=== PATIENT | female | born 1990 | race African-American/Black ===

== ENCOUNTER 2017-03-02 09:05 | Inpatient (IN) ==
[2017-03-02] MEDS ORDERED: PENICILLIN G BENZATHINE 2,400,000 UNIT/4 ML SYRINGE IM ONE (09:30)
--- NOTE | 2017-03-02 11:13 | OB/GYN Progress Note ---
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 Records are available and reviewed. She is here for a repeat PCN G shot secondary to positive VDRL for syphillis. She has already had 2 doses. She complains of irregular contractions and vaginal bleeding today. She denies any other problems presently. States she notices good movement, denies any SROM. ROS: GI negative, CV negative, Neuro negative, Cardiac negative O: AAO x 3 Lungs: CTA carlene Hrt: NSR Abdomen: soft, nontender Uterus: Gravid, soft between contractions FHTs @ 120s with spontaneous variability UCs irregular/ 40-60 sec/ mild SVE 3-4 cm/ 50% effaced/ -2 station GBS negative A: IUP @ 38.3 wks, H/O Syphillis, GBS negative, Early Labor, Category I FHR tracing P: Continue to monitor for maternal and status, reposition for comfort. Dr. Allen aware of patient and plan of care and agrees to monitor for labor. Questions answered to desired level of satisfaction. Ice chips only. 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
[2017-03-02] MEDS ORDERED: BUTORPHANOL 2 MG/ML VIAL IV PRN (15:23)
[2017-03-02] MEDS ORDERED: ONDANSETRON 4 MG/2 ML VIAL IV PRN (15:23)
[2017-03-02] MEDS ORDERED: MEPERIDINE 50 MG/1 ML VIAL IV PRN (15:23)
[2017-03-02] MEDS ORDERED: OXYTOCIN/LR 20 UNIT/1,000 ML BAG IV SCH (15:30)
[2017-03-02] MEDS: LACTATED RINGERS 1,000 ML IV SCH (15:45)
[2017-03-02 17:04] LABS: Basophils % 0.3 % (0.0-0.8); Eosinophils # 0.1 10*3/uL (0.0-0.87); Eosinophils % 1.3 % (0.00-10.9); Hematocrit 30.7 VOL% (35.7-47.0); Hemoglobin 9.3 GM/DL (12.0-16.0); Immature Granulocytes % 0.4 %; Immature Granulocytes Absolute 0.04 #; Lymphocytes # 2.2 10*3/uL (1.4-4.0); Lymphocytes % 22.6 % (21.3-54.2); Mean Corpuscular HGB Conc 30.3 GM/DL (32-36); Mean Corpuscular Hemoglobin 22 PG (27-34); Mean Corpuscular Volume 72.9 FL (87-102); Mean Platelet Volume 10.9 FL (9.6-12.0); Monocytes # 0.6 10*3/uL (0.11-0.8); Monocytes % 5.7 % (1.7-12.7); Neutrophils # 6.8 10*3/uL (1.4-7.4); Neutrophils % 69.7 % (38.7-73.9); Platelet Count 332 T/CUMM (130-400); Red Blood Count 4.21 MC/CUMM (3.8-5.5); Red Cell Distribution Width 16.3 % (9.3-17.3); White Blood Count 9.7 T/CUMM (4-12)
[2017-03-02 17:30] LABS: Alanine Aminotransferase 9 U/L (13-56); Albumin 2.3 G/DL (3.4-5.0); Alkaline Phosphatase 118 U/L (45-117); Aspartate Amino Transferase 15 U/L (0-37); Bilirubin,Total < 0.39 MG/DL (0.2-1.0); Blood Urea Nitrogen 5 MG/DL (7-18); Calcium 8.4 MG/DL (8.5-10.1); Glucose 76 MG/DL (74-106); Osmolality,Calculated 274.4 MOS/KG (273-304); Potassium 3.3 MMOL/L (3.5-5.1); Sodium 140 MMOL/L (136-145)
[2017-03-02] MEDS ORDERED: CITRIC ACID/SODIUM CITRATE 30 ML UDCUP PO ONE (19:59)
[2017-03-02] MEDS ORDERED: fentaNYL 2 MCG/ROPIV 0.2% EPID 150 ML EPIDURAL SCH (19:59)
[2017-03-02] MEDS ORDERED: hydrOXYzine HCL 25 MG/1 ML VIAL IM PRN (19:59)
[2017-03-02] MEDS ORDERED: PROMETHAZINE 25 MG/1 ML VIAL IM ONE (19:59)
[2017-03-02] MEDS ORDERED: ONDANSETRON 4 MG/2 ML VIAL IV ONE (19:59)
[2017-03-02] MEDS ORDERED: ePHEDrine 50 MG/ML AMP IV PRN (19:59)
[2017-03-02] MEDS ORDERED: diphenhydrAMINE 50 MG/1 ML VIAL IV PRN ×2 (19:59)
[2017-03-02] MEDS ORDERED: FAMOTIDINE 20 MG/2 ML VIAL IV ONE (19:59)
[2017-03-03] MEDS ORDERED: CITRIC ACID/SODIUM CITRATE 30 ML UDCUP PO ONE (04:59)
[2017-03-03] MEDS ORDERED: FAMOTIDINE 20 MG/2 ML VIAL IV ONE (04:59)
[2017-03-03] MEDS: LACTATED RINGERS 1,000 ML IV SCH ×2 (05:14→05:58)
--- NOTE | 2017-03-03 05:14 | OB/GYN History & Physical ---
History of Present Illness Chief complaint: Admitted for labor. C/O contractions. History of present illness: Ms. Castro is a 26 year old female Patient is a 26-year-old 5 para 2021 that presented complaining of contractions and to receive her third shot for syphilis. She has an EDC of based on a 34.6 week ultrasound. She is 38.3 weeks gestation on admission. She receives care at [facility] with Geni Ambrosio and myself. She had a total of 3 visits and 1 ultrasounds. Her records are current, available, and up-to-date. During the course of her , she was noted with chlamydia, herpes, and syphilis. She did receive syphilis 3 injections [facility]. She did receive azithromycin for her treatment of chlamydia. She is placed on Valtrex 1 g daily starting on 02/12/2017. 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 Labs: Blood type and RH a positive, antibody screen negative, Rubella immune, HIV negative, HBsAG negative, GC negative, Chlamydia positive on 02/12/2017 and treated with 8 azithromycin, Diabetic Screen unavailable, GBS negative, her RPR was 1: 32 reactive in which she did receive penicillin G 2.4 million units 3 doses IM with her last dose being given on 03-17 Home Medications Medication Instructions Recorded Confirmed Type Vit No.124/Iron/Folic 1 each PO DAILY MDD one tab 01/28/17 03/02/17 History [ Vitamin Tablet] Ferrous Sulfate [Iron] 1 tablet PO BID 03/02/17 03/02/17 History valACYclovir [Valtrex] 500 mg PO DAILY 03/02/17 03/02/17 History Allergies Allergy/AdvReac Type Severity Reaction Status Date / Time No Known Allergies Allergy Verified 03/02/17 09:27 12 point system: reviewed and no additional remarkable complaints except as stated Medical,Surgical,& Family Hx - Medical History Reproductive: History of: Sexually Transmitted Disorders (syphillis tx with pcn , HSV, Chlamydia) No history of: Ectopic , Complication - Surgical History Surgical History: noncontributory Reproductive Surgeries: Patient denies;: Section - Family History Family History: Reports;: Family Diabetes (pgm) Denies;: Family Anesthesia Reaction - Social History Smoking Status: Never smoker Frequency of Alcohol Use: None Type of Drug Use: None Marital Status: Single Lives With:: Children Functional capacity: independent ambulation 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 - Constitutional Vitals: Vital Signs Temp Pulse Resp BP Pulse Ox 03/03/17 00:00 98.1 F 03/02/17 20:00 98.2 F 86 18 111/66 03/02/17 16:00 97.7 F 89 20 134/51 03/02/17 12:00 97.4 F L 79 18 111/71 03/02/17 09:13 98.6 F 90 20 121/65 98 General appearance: no acute distress - Antepartum / Post Antepartum Exam Cervix - Dilatation: 5 Effacement: 50 Station: -2 Rupture: Intact Presentation: Vertex Heart Rate: 120 [place]: Irregular Breast: bilateral: normal Abdomen obstetrics: Present: bowel sounds normal Vulva: bilateral: normal Vagina: Present: normal moisture Cervix: Present: normal Uterus exam: Present: enlarged (Gravid, soft, nontender to touch) Adnexa: bilateral: normal Anus/Rectum: Present: normal perianal skin - Head Head exam: Present: normal inspection - Eye Eye exam: Present: EOMI Pupils: Present: normal accommodation - ENT ENT exam: Present: normal exam - Neck Neck exam: Present: normal inspection - Respiratory Respiratory exam: Present: clear to auscultation bilaterally - Cardiovascular Cardiovascular exam: Present: regular rate and rhythm - Extremities Exam Extremities exam: Present: normal inspection, normal capillary refill, full ROM - Back Exam Back exam: Present: normal inspection - Neurological Exam Neurological exam: Present: alert, oriented X3, normal gait - Psychiatric Psychiatric exam: Present: normal affect, normal mood - Skin Skin exam: Present: normal color, warm Assessment and Plan (1) History of syphilis Status: Acute Current Visit: Yes (2) Spontaneous onset of labor Status: Acute Current Visit: Yes (3) Anemia Status: Acute Current Visit: Yes Results - Labs CBC & BMP: 03/02/17 16:55 03/02/17 16:55 Labs: Laboratory Tests 03/02/17 03/02/17 03/02/17 16:55 16:55 16:55 WBC 9.7 RBC 4.21 Hgb 9.3 L Hct 30.7 L MCV 72.9 L MCH 22 L MCHC 30.3 L RDW 16.3 Plt Count 332 MPV 10.9 Neut % (Auto) 69.7 Lymph % (Auto) 22.6 [place] % (Auto) 5.7 Eos % (Auto) 1.3 Baso % (Auto) 0.3 Neut # (Auto) 6.8 Lymph # (Auto) 2.2 [place] # (Auto) 0.6 Eos # (Auto) 0.1 Baso # (Auto) 0.0 Immature Gran % 0.4 Nucleated RBC % 0.0 Immature Gran # 0.04 Nucleated RBCs # 0.00 Immature Plt Fraction 0.0 Sodium 140 Potassium 3.3 L Chloride 108 H Carbon Dioxide 25 Anion Gap 10.3 BUN 5 L Creatinine 0.40 L GFR Calculation 183 BUN/Creatinine Ratio 12.00 Glucose 76 Calculated Osmolality 274.4 Calcium 8.4 L Total Bilirubin < 0.39 AST 15 ALT 9 L Alkaline Phosphatase 118 H Total Protein 7.0 Albumin 2.3 L Globulin 4.7 H Albumin/Globulin Ratio 0.4 L Blood Type A POSITIVE Antibody Screen Negative
--- NOTE | 2017-03-03 05:23 | OB/GYN Progress Note ---
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 Denies SROM or vaginal bleeding O: heart tones at 115-120s with spontaneous accelerations, no decelerations noted, good variability present, category 1 heart rate tracing Irregular contractions noted 4/30-50 seconds/mild Vaginal exam 6 cm/80% effaced/-1 station. Artificial rupture of membranes with an amniotic with clear fluid noted A: IUP @ 38.4, Category I FHR tracing, H/O Syphilis, Spontaneous labor, Prodromal labor, AROM- clear fluid P: Start Pitocin secondary prodromal labor. May have epidural if desired. Reposition for comfort. Questions answered to desired level of satisfaction. 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
[2017-03-03 05:51] LABS: Rapid Plasma Reagin Confirm REACTIVE (Nonreactive)
[2017-03-03] MEDS ORDERED: miSOPROStol 200 MCG TABLET ONE (08:50)
--- NOTE | 2017-03-03 09:22 | Operative Note ---
Date of procedure: 03/03/17 Pre-op diagnosis: IUP @ 37.3 wks, Labor, H/O Syphilis Post-op diagnosis: other () Procedure: Patient received dorsolithotomy position, at 0840 patient was complete and +1 station. Patient was draped and prepped. At 0856, head delivered in direct OP position without a nuchal cord noted. Anterior then posterior shoulders were delivered easily without difficulty. delivered in usual fashion and secured. Mouth and nose bulb suctioned. After approximately 2 minutes post delivery and cord stopped pulsating, cord doubly clamped and cut. placed on mother's abdomen and attended per nursery RN. At 0901, spontaneous delivery of placenta via Shilts position, with 3 vessel cord noted, normal cord insertion, with minimal calcifications. Hemostasis maintained with fundal massage and Pitocin 20 units in 1000 cc of lactated Ringer's. Perineum inspected with perineal abrasions noted, stable, no repair needed. Female with Apgars 9 and 9 with weight pending. Mother and baby stable and baby is presently on mother's chest. Mother desires to breast and bottle feed. Anesthesia: epidural Surgeon / Physician: Yohana Siddiqui Estimated blood loss: minimal (150 cc) Urine output: 100 Condition: stable Disposition: floor Results - Labs CBC & BMP: 03/02/17 16:55 03/02/17 16:55 Discharge Plan - Discharge Medications No Action Vit No.124/Iron/Folic [ Vitamin Tablet] 1 each PO DAILY MDD one tab valACYclovir [Valtrex] 500 mg PO DAILY Ferrous Sulfate [Iron] 1 tablet PO BID - Follow Up or Referral - Forms/Instructions
[2017-03-03] MEDS ORDERED: oxyCODONE/ACETAMINOPHEN 5-325 MG TABLET PO PRN ×2 (09:24)
[2017-03-03] MEDS ORDERED: RHO(D) IMMUNE GLOBULIN 300 MCG SYRINGE IM ONE (09:24)
[2017-03-03] MEDS ORDERED: DIPH/TET/ACEL PERT BOOSTER VACCINE 0.5 ML VIAL IM ONE (09:24)
[2017-03-03] MEDS ORDERED: BENZOCAINE 20%/MENTHOL 0.5% SPRAY 56 GM CAN TOP PRN (09:24)
[2017-03-03] MEDS ORDERED: WITCH HAZEL PADS 100/JAR TOP PRN (09:24)
[2017-03-03] MEDS ORDERED: IBUPROFEN 800 MG TABLET PO PRN (09:24)
[2017-03-03] MEDS ORDERED: OXYTOCIN/LR 20 UNIT/1,000 ML BAG IV ONE (09:24)
[2017-03-03] MEDS ORDERED: MEASLES/MUMPS/RUBELLA VACCINE 0.5 ML VIAL SUBCUT ONE (09:24)
[2017-03-03] MEDS ORDERED: ACETAMINOPHEN 325 MG TABLET PO PRN (09:24)
[2017-03-03] MEDS ORDERED: BISACODYL 10 MG SUPP RECTAL PRN (09:24)
[2017-03-03] MEDS ORDERED: HYDROCORTISONE 2.5% RECTAL CREAM 30 GM TUBE TOP PRN (09:24)
[2017-03-03] MEDS ORDERED: LANOLIN 50% CREAM 0.3 OZ TUBE TOP PRN (09:24)
[2017-03-03] MEDS: FERROUS SULFATE 325 MG TABLET PO SCH ×2 (15:34→21:21)
[2017-03-03] MEDS: DOCUSATE SODIUM 100 MG CAPSULE PO SCH (21:12)
[2017-03-03] MEDS: valACYclovir 500 MG TABLET PO SCH (21:21)
[2017-03-04 06:42] LABS: Basophils % 0.2 % (0.0-0.8); Eosinophils # 0.2 10*3/uL (0.0-0.87); Eosinophils % 1.6 % (0.00-10.9); Hematocrit 25.8 VOL% (35.7-47.0); Hemoglobin 8.1 GM/DL (12.0-16.0); Immature Granulocytes % 0.5 %; Immature Granulocytes Absolute 0.06 #; Lymphocytes # 3.2 10*3/uL (1.4-4.0); Mean Corpuscular HGB Conc 31.4 GM/DL (32-36); Mean Corpuscular Hemoglobin 23 PG (27-34); Mean Corpuscular Volume 72.1 FL (87-102); Mean Platelet Volume 10.3 FL (9.6-12.0); Monocytes # 0.6 10*3/uL (0.11-0.8); Neutrophils # 7.3 10*3/uL (1.4-7.4); Neutrophils % 64.7 % (38.7-73.9); Platelet Count 235 T/CUMM (130-400); Red Blood Count 3.58 MC/CUMM (3.8-5.5); White Blood Count 11.3 T/CUMM (4-12)
--- NOTE | 2017-03-04 07:12 | Anesthesia Post-Op ---
Anesthesia Post OP - Post Ansesthetic Evaluation Patient seen in post op: Yes Resp: within normal limits CV: within normal limits Mental: within normal limits Temp: within normal limits [id number]-[id number]: within normal limits Nausea and Vomiting: within normal limits Pain: within normal limits
[2017-03-04] MEDS: valACYclovir 500 MG TABLET PO SCH (08:49)
[2017-03-04] MEDS: DOCUSATE SODIUM 100 MG CAPSULE PO SCH ×2 (08:49→22:03)
[2017-03-04] MEDS: FERROUS SULFATE 325 MG TABLET PO SCH ×2 (08:50→22:02)
--- NOTE | 2017-03-04 09:26 | OB/GYN Progress Note ---
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 Denies any problems. Requests a tubal ligation for control. Exam RANCH HELPER - Constitutional Vitals: Vital Signs Temp Pulse Resp BP Pulse Ox 03/04/17 07:35 97.6 F 77 18 108/71 97 03/04/17 06:26 18 03/04/17 06:00 18 03/04/17 05:00 18 03/04/17 04:00 97.6 F 71 20 109/60 99 03/04/17 03:00 18 03/04/17 02:00 18 03/04/17 01:00 18 03/04/17 00:00 98.5 F 86 18 122/70 99 03/03/17 20:00 98.9 F 85 18 115/67 99 03/03/17 18:46 20 03/03/17 17:54 20 03/03/17 17:00 20 03/03/17 15:53 97.8 F 76 18 115/74 99 03/03/17 13:30 98.4 F 82 18 122/70 97 03/03/17 13:00 98.3 F 74 18 117/76 99 03/03/17 12:30 98.3 F 76 18 116/80 99 03/03/17 12:00 98.8 F 95 H 20 111/56 100 General appearance: no acute distress - Antepartum / Post Post Exam Breast: bilateral: normal Abdomen obstetrics: Present: bowel sounds normal Vagina: Present: normal moisture (scant rubra noted on perineal pad) Cervix: Present: normal Uterus exam: Present: enlarged (firm, midline, 2 FB below umbilicus) Anus/Rectum: Present: normal perianal skin - Head Head exam: Present: normal inspection - Eye Eye exam: Present: EOMI Pupils: Present: normal accommodation - ENT ENT exam: Present: normal exam - Neck Neck exam: Present: normal inspection - Respiratory Respiratory exam: Present: clear to auscultation bilaterally - Cardiovascular Cardiovascular exam: Present: regular rate and rhythm - Extremities Exam Extremities exam: Present: normal inspection, normal capillary refill - Back Exam Back exam: Present: normal inspection - Neurological Exam Neurological exam: Present: alert - Psychiatric Psychiatric exam: Present: normal affect, normal mood - Skin Skin exam: Present: normal color, warm, dry Results - Labs CBC & BMP: 03/04/17 06:04 03/02/17 16:55 Labs: Laboratory Tests 03/02/17 03/02/17 03/02/17 16:55 16:55 16:55 WBC 9.7 RBC 4.21 Hgb 9.3 L Hct 30.7 L MCV 72.9 L MCH 22 L MCHC 30.3 L RDW 16.3 Plt Count 332 MPV 10.9 Neut % (Auto) 69.7 Lymph % (Auto) 22.6 [place] % (Auto) 5.7 Eos % (Auto) 1.3 Baso % (Auto) 0.3 Neut # (Auto) 6.8 Lymph # (Auto) 2.2 [place] # (Auto) 0.6 Eos # (Auto) 0.1 Baso # (Auto) 0.0 Immature Gran % 0.4 Nucleated RBC % 0.0 Immature Gran # 0.04 Nucleated RBCs # 0.00 Immature Plt Fraction 0.0 Sodium 140 Potassium 3.3 L Chloride 108 H Carbon Dioxide 25 Anion Gap 10.3 BUN 5 L Creatinine 0.40 L GFR Calculation 183 BUN/Creatinine Ratio 12.00 Glucose 76 Calculated Osmolality 274.4 Calcium 8.4 L Total Bilirubin < 0.39 AST 15 ALT 9 L Alkaline Phosphatase 118 H Total Protein 7.0 Albumin 2.3 L Globulin 4.7 H Albumin/Globulin Ratio 0.4 L RPR Titer RPR Confirmation Blood Type A POSITIVE Antibody Screen Negative 03/02/17 03/04/17 16:55 06:04 WBC 11.3 RBC 3.58 L Hgb 8.1 L Hct 25.8 L MCV 72.1 L MCH 23 L MCHC 31.4 L RDW 16.0 Plt Count 235 D MPV 10.3 Neut % (Auto) 64.7 Lymph % (Auto) 28.0 [place] % (Auto) 5.0 Eos % (Auto) 1.6 Baso % (Auto) 0.2 Neut # (Auto) 7.3 Lymph # (Auto) 3.2 [place] # (Auto) 0.6 Eos # (Auto) 0.2 Baso # (Auto) 0.0 Immature Gran % 0.5 Nucleated RBC % 0.0 Immature Gran # 0.06 Nucleated RBCs # 0.00 Immature Plt Fraction 0.0 Sodium Potassium Chloride Carbon Dioxide Anion Gap BUN Creatinine GFR Calculation BUN/Creatinine Ratio Glucose Calculated Osmolality Calcium Total Bilirubin AST ALT Alkaline Phosphatase Total Protein Albumin Globulin Albumin/Globulin Ratio RPR Titer 1:64 RPR Confirmation Reactive Blood Type Antibody Screen
[2017-03-04] MEDS ORDERED: INFLUENZA VIRUS VACCINE 0.5 ML SYRINGE IM ONE (16:16)
[2017-03-05] MEDS: DOCUSATE SODIUM 100 MG CAPSULE PO SCH (10:15)
[2017-03-05] MEDS: FERROUS SULFATE 325 MG TABLET PO SCH ×2 (10:15→16:05)
[2017-03-05] MEDS: valACYclovir 500 MG TABLET PO SCH (10:16)
[2017-03-05 11:37] VITALS: BP 128/76
--- NOTE | 2017-03-05 12:17 | Pathology Report from [facility] ---
[place] ACCESSION # : [id number] PATIENT NAME : Pilar Proctor ORDERING DR : VENKAT DESAI DO CLINICAL HX: Late care, syphilis in POST-OP DX: Same SPECIMEN INFO: Placenta GROSS DESCRIPTION: Received fresh labeled PILAR PROCTOR & PLACENTA is a 449 gm placenta measuring 23.5 x 21.2 x 1.5 cm. The membranes are rene and translucent. The umbilical cord is centrally inserted, contains three vessels and is 25.1 cm. The surface is dark blue [place] with scattered areas of light rene subchorionic fibrinous areas. The maternal surface is beefy red with mildly disrupted cotyledons. Areas of scattered adherent clotted blood are noted. A few scattered calcifications are note. Sectioning shows no gross abnormalities. Sections submitted A- membranes and cord, B- and maternal surface. DIAGNOSIS FOR PILAR PROCTOR: PLACENTA, MEMBRANES, UMBILICAL CORD: Focal placental infarction, mild intervillous blood, dystrophic calcification. Tri- vessel umbilical cord. Membranes with focal chronic inflammation and attached blood. COLLECTED DATE: 03/03/2017 [facility] REPORT DATE: 03/05/2017 ELECTRONICALLY SIGNED BY: Murali Garcia M.D. 03/05/2017 - 9:06:04 KRISTEL
--- NOTE | 2017-03-05 13:15 | Discharge Summary ---
Hospital Course - Hospital Course Hospital Course: Patient is a G5 now 3023 that presented with early labor @ 37.3 wks. Labor progressed under an epidural anesthetic for patient to delivery a female with Agpars 9 and 9 over an intact perineum. Ms. Castro is . She was treated for syphilis with PCN G 2.4 million units and baby tested positive for syphilis. Ms. Castro will be discharged home today and she will f/u with me in 2 weeks. She has been stable. Diagnosis - Discharge Diagnosis (1) History of syphilis Status: Acute (2) Spontaneous onset of labor Status: Resolved (3) Anemia Status: Acute (4) (normal spontaneous vaginal delivery) Status: Resolved Specialty Discharge - Follow Up or Referrals Follow up with: Yohana Siddiqui CFNP [Primary Care Provider] - Discharge Plan - Discharge Data Disposition: Disch To Home/Self Care Condition at Discharge: Stable Discharge Diet: advance to your usual diet Activity: resume usual activities as tolerated Hygiene: may shower Weight Bearing at Discharge: full weight bearing Driving: not for (2 weeks) Contact your physician if you experience:: fever over 101, Difficulty voiding, Redness or swelling, Nausea/Vomiting, Shortness of breath, Bleeding, pain uncontrolled by pain medications - Discharge Medications New Ibuprofen Tab [Motrin Tab] 800 mg PO Q8H PRN #90 tablet PRN Reason: Pain Moderate (4-7) Ferrous Sulfate Tab [Feosol Original Tab] 325 mg PO TID #90 tablet No Action Vit No.124/Iron/Folic [ Vitamin Tablet] 1 each PO DAILY MDD one tab valACYclovir [Valtrex] 500 mg PO DAILY Ferrous Sulfate [Iron] 1 tablet PO BID - Follow Up or Referral Follow Up: Yohana Siddiqui CFNP [Primary Care Provider] - 2 Weeks - Forms/Instructions Instructions: Depression (GEN), Perineal Care (DC), Vaginal Delivery (DC), Bleeding (DC) Exam - Constitutional Vitals: Period Temp Pulse Resp BP Sys/Valderrama Pulse Ox Last 24 Hr 97.8 F-99.3 F 73-85 18-20 109-137/58-79 98-99 General appearance: no acute distress - Head Head exam: Present: normal inspection - Eye Eye exam: Present: EOMI Pupils: Present: normal accommodation - ENT ENT exam: Present: normal exam, normal external ear exam - Neck Neck exam: Present: normal inspection - Respiratory Respiratory exam: Present: clear to auscultation bilaterally - Cardiovascular Cardiovascular exam: Present: regular rate and rhythm - GI/Abdominal GI/Abdominal exam: Present: normal bowel sounds, other (uterus firm, midline, 3 FB below umbilicus. Scant rubra noted on perineal pad. No edema noted to perineal area, intact, healing well) - Extremities Exam Extremities exam: Present: normal inspection, normal capillary refill, full ROM - Back Exam Back exam: Present: normal inspection - Neurological Exam Neurological exam: Present: alert, oriented X3, normal gait - Psychiatric Psychiatric exam: Present: normal affect, normal mood - Skin Skin exam: Present: normal color, warm, dry Discharge Results Procedures and tests throughout hospitalization: Pending Orders 03/03/17 06:25 UA [Urinalysis] Stat Laboratory Tests 03/02/17 03/02/17 03/02/17 16:55 16:55 16:55 WBC 9.7 RBC 4.21 Hgb 9.3 L Hct 30.7 L MCV 72.9 L MCH 22 L MCHC 30.3 L RDW 16.3 Plt Count 332 MPV 10.9 Neut % (Auto) 69.7 Lymph % (Auto) 22.6 [place] % (Auto) 5.7 Eos % (Auto) 1.3 Baso % (Auto) 0.3 Neut # (Auto) 6.8 Lymph # (Auto) 2.2 [place] # (Auto) 0.6 Eos # (Auto) 0.1 Baso # (Auto) 0.0 Immature Gran % 0.4 Nucleated RBC % 0.0 Immature Gran # 0.04 Nucleated RBCs # 0.00 Immature Plt Fraction 0.0 Sodium 140 Potassium 3.3 L Chloride 108 H Carbon Dioxide 25 Anion Gap 10.3 BUN 5 L Creatinine 0.40 L GFR Calculation 183 BUN/Creatinine Ratio 12.00 Glucose 76 Calculated Osmolality 274.4 Calcium 8.4 L Total Bilirubin < 0.39 AST 15 ALT 9 L Alkaline Phosphatase 118 H Total Protein 7.0 Albumin 2.3 L Globulin 4.7 H Albumin/Globulin Ratio 0.4 L RPR Titer RPR Confirmation Blood Type A POSITIVE Antibody Screen Negative 03/02/17 03/04/17 16:55 06:04 WBC 11.3 RBC 3.58 L Hgb 8.1 L Hct 25.8 L MCV 72.1 L MCH 23 L MCHC 31.4 L RDW 16.0 Plt Count 235 D MPV 10.3 Neut % (Auto) 64.7 Lymph % (Auto) 28.0 [place] % (Auto) 5.0 Eos % (Auto) 1.6 Baso % (Auto) 0.2 Neut # (Auto) 7.3 Lymph # (Auto) 3.2 [place] # (Auto) 0.6 Eos # (Auto) 0.2 Baso # (Auto) 0.0 Immature Gran % 0.5 Nucleated RBC % 0.0 Immature Gran # 0.06 Nucleated RBCs # 0.00 Immature Plt Fraction 0.0 Sodium Potassium Chloride Carbon Dioxide Anion Gap BUN Creatinine GFR Calculation BUN/Creatinine Ratio Glucose Calculated Osmolality Calcium Total Bilirubin AST ALT Alkaline Phosphatase Total Protein Albumin Globulin Albumin/Globulin Ratio RPR Titer 1:64 RPR Confirmation Reactive Blood Type Antibody Screen DS: Provider Date of admission: 03/02/17 15:23 Primary care physician: LIZA Lauren Attending physician on admission: Davion Allen DO Consults: 03/02/17 15:23 Consult to Anesthesiology [CONS] Routine Consulting Provider: Reason for Anesthesiology: Epidural Consult Comment: Epidural for pain managment 03/03/17 09:24 Consult to Under Water Assistant [CONS] Routine Consult Under Water Assistant: Breast Feeding Discharging clinician: LIZA Lauren
== END 2017-03-05 16:30 | disposition home or self-care (01) | DRG 560 ==
LOC: N.LDOUT 09:05 → N.LD 09:06 → N.OB 03-03 12:15
PROVIDERS: ADMIT Obstetrics & Gynecology; ATTEND Obstetrics & Gynecology

== ENCOUNTER 2019-08-02 09:41 | Inpatient (IN) ==
[2019-08-02] MEDS ORDERED: ONDANSETRON 4 MG/2 ML VIAL IV PRN (10:05)
[2019-08-02] MEDS ORDERED: MEPERIDINE 50 MG/1 ML VIAL IV PRN (10:05)
[2019-08-02] MEDS ORDERED: AMPICILLIN INJ 2,000 MG in SODIUM CHLORIDE 0.9% 100 ML IV ONE (10:10)
[2019-08-02] MEDS ORDERED: FAMOTIDINE 20 MG/2 ML VIAL IV ONE (10:23)
[2019-08-02] MEDS ORDERED: CITRIC ACID/SODIUM CITRATE 30 ML UDCUP PO ONE (10:23)
[2019-08-02] MEDS ORDERED: LACTATED RINGERS 1,000 ML IV ONE (10:23)
[2019-08-02] MEDS ORDERED: hydrOXYzine HCL 25 MG/1 ML VIAL IM PRN (10:24)
[2019-08-02] MEDS ORDERED: PROMETHAZINE 25 MG/1 ML VIAL IM ONE (10:24)
[2019-08-02] MEDS ORDERED: NALOXONE 0.4 MG/ML VIAL IV PRN (10:24)
[2019-08-02] MEDS ORDERED: diphenhydrAMINE 50 MG/1 ML VIAL IV PRN ×2 (10:24)
[2019-08-02] MEDS ORDERED: LACTATED RINGERS 250 ML IV PRN (10:24)
[2019-08-02 10:28] LABS: Basophils # 0.1 10*3/uL (0.0-0.2); Basophils % 0.3 % (0.0-0.8); Eosinophils # 0.2 10*3/uL (0.0-0.87); Eosinophils % 1.4 % (0.00-10.9); Hematocrit 34.6 VOL% (35.7-47.0); Hemoglobin 10.3 GM/DL (12.0-16.0); Immature Granulocytes % 0.8 %; Immature Granulocytes Absolute 0.11 #; Lymphocytes # 2.8 10*3/uL (1.4-4.0); Mean Corpuscular HGB Conc 29.8 GM/DL (32-36); Mean Corpuscular Volume 76.7 FL (87-102); Monocytes % 5.4 % (1.7-12.7); Neutrophils % 73.1 % (38.7-73.9); Platelet Count 375 T/CUMM (130-400); Red Blood Count 4.51 MC/CUMM (3.8-5.5); Red Cell Distribution Width 14.4 % (9.3-17.3); White Blood Count 14.6 T/CUMM (4-12)
[2019-08-02] MEDS ORDERED: OXYTOCIN/LR 20 UNIT/1,000 ML BAG IV SCH (10:30)
[2019-08-02] MEDS ORDERED: LACTATED RINGERS 1,000 ML IV SCH ×2 (10:30)
[2019-08-02] MEDS ORDERED: fentaNYL 2 MCG/ROPIV 0.2% EPID 100 ML EPIDURAL SCH (10:30)
[2019-08-02] MEDS: ePHEDrine 50 MG/ML AMP IV PRN ×2 (12:11→12:16)
[2019-08-02 12:16] LABS: RPR Confirm - Less than 1 yr NONREACTIVE (Nonreactive)
[2019-08-02] MEDS ORDERED: TERBUTALINE 1 MG/1 ML VIAL ONE (12:29)
[2019-08-02 13:25] LABS: Apearance,Urine CLEAR (Clear); Bacteria,Urine Occasional /HPF (Few); Bilirubin,Urine Negative (Negative); Blood, Urine Negative (Negative); Glucose,Urine (UA) Negative (Negative); Hyaline Casts,Urine 1 /LPF (0-3); Ketones,Urine Negative (Negative); Mucus,Urine Occasional /LPF (Occasional); Nitrite,Urine Negative (Negative); Protein,Urine Negative; RBC,Urine 1 /HPF (0-4); Squamous Epithelial Cell,Urine Occasional /HPF (0-10); Urine Color Yellow (Yellow); Urine Specific Gravity 1.023 (1.001-1.035); WBC,Urine 2 /HPF (0-6)
[2019-08-02] MEDS ORDERED: AMPICILLIN INJ 1,000 MG in SODIUM CHLORIDE 0.9% 100 ML IV SCH (15:00)
[2019-08-02] MEDS ORDERED: TRANEXAMIC ACID 1,000 MG/10 ML VIAL ONE (15:14)
[2019-08-02] MEDS ORDERED: OXYTOCIN/LR 20 UNIT/1,000 ML BAG IV ONE ×2 (15:14→16:07)
[2019-08-02] MEDS ORDERED: miSOPROStoL 200 MCG TABLET ONE (15:14)
[2019-08-02] MEDS ORDERED: CARBOPROST TROMETHAMINE 250 MCG/ML AMP IM ONE (15:15)
[2019-08-02] MEDS ORDERED: METHYLERGONOVINE 0.2 MG/1 ML AMP ONE (15:15)
[2019-08-02] MEDS ORDERED: LIDOCAINE 1% 50 ML VIAL ONE (15:16)
[2019-08-02] MEDS ORDERED: ACETAMINOPHEN 325 MG TABLET PO PRN (16:07)
[2019-08-02] MEDS ORDERED: oxyCODONE/ACETAMINOPHEN 5-325 MG TABLET PO PRN ×2 (16:07)
[2019-08-02] MEDS ORDERED: DIPH/TET/ACEL PERT BOOSTER VACCINE 0.5 ML VIAL IM ONE (16:07)
[2019-08-02] MEDS ORDERED: RHO(D) IMMUNE GLOBULIN 300 MCG SYRINGE IM ONE (16:07)
[2019-08-02] MEDS ORDERED: MEASLES/MUMPS/RUBELLA VACCINE 0.5 ML VIAL SUBCUT ONE (16:07)
[2019-08-02] MEDS ORDERED: BENZOCAINE 20%/MENTHOL 0.5% SPRAY 56 GM CAN TOP PRN (16:07)
[2019-08-02] MEDS ORDERED: HYDROCORTISONE 2.5% RECTAL CREAM 30 GM TUBE TOP PRN (16:07)
[2019-08-02] MEDS ORDERED: LANOLIN 50% CREAM 0.3 OZ TUBE TOP PRN (16:07)
[2019-08-02] MEDS ORDERED: BISACODYL 10 MG SUPP RECTAL PRN (16:07)
[2019-08-02] MEDS ORDERED: WITCH HAZEL PADS 100/JAR TOP PRN (16:07)
[2019-08-02] MEDS: IBUPROFEN 800 MG TABLET PO PRN (19:41)
[2019-08-02] MEDS: DOCUSATE SODIUM 100 MG CAPSULE PO SCH (21:31)
[2019-08-02] MEDS: FERROUS SULFATE 325 MG TABLET PO SCH (21:31)
[2019-08-03 06:17] LABS: Basophils % 0.3 % (0.0-0.8); Eosinophils # 0.2 10*3/uL (0.0-0.87); Eosinophils % 1.2 % (0.00-10.9); Hematocrit 32.1 VOL% (35.7-47.0); Hemoglobin 9.4 GM/DL (12.0-16.0); Immature Granulocytes % 0.6 %; Immature Granulocytes Absolute 0.08 #; Lymphocytes # 2.8 10*3/uL (1.4-4.0); Mean Corpuscular HGB Conc 29.3 GM/DL (32-36); Mean Corpuscular Volume 77.9 FL (87-102); Mean Platelet Volume 10.9 FL (9.6-12.0); Monocytes % 5.6 % (1.7-12.7); Neutrophils % 72.3 % (38.7-73.9); Platelet Count 328 T/CUMM (130-400); Red Blood Count 4.12 MC/CUMM (3.8-5.5); Red Cell Distribution Width 14.4 % (9.3-17.3); White Blood Count 13.8 T/CUMM (4-12)
[2019-08-03] MEDS: FERROUS SULFATE 325 MG TABLET PO SCH ×2 (10:26→22:10)
[2019-08-03] MEDS: DOCUSATE SODIUM 100 MG CAPSULE PO SCH ×2 (10:26→22:10)
[2019-08-04] MEDS: IBUPROFEN 800 MG TABLET PO PRN (07:14)
[2019-08-04] MEDS: FERROUS SULFATE 325 MG TABLET PO SCH (08:18)
[2019-08-04] MEDS: DOCUSATE SODIUM 100 MG CAPSULE PO SCH (08:18)
[2019-08-04] MEDS ORDERED: INFLUENZA VIRUS VACCINE 0.5 ML SYRINGE IM ONE (09:00)
[2019-08-04] MEDS ORDERED: ALUMINUM/MAGNES/SIMETH MAX STR 30 ML UDCUP PO PRN (12:11)
[2019-08-04 16:18] VITALS: BP 138/67
== END 2019-08-04 17:40 | disposition home or self-care (01) | DRG 807 ==
LOC: N.LDOUT 09:41 → N.LD 09:45 → N.OB 18:09
PROVIDERS: ADMIT Obstetrics & Gynecology; ATTEND Obstetrics & Gynecology

== ENCOUNTER 2019-08-30 10:25 | Inpatient (IN) ==
[2019-08-30] MEDS ORDERED: cefTRIAXone 1,000 MG in SODIUM CHLORIDE 0.9% 100 ML IV STA (11:10)
[2019-08-30] MEDS ORDERED: SODIUM CHLORIDE 0.9% 1,000 ML IV STA (11:11)
[2019-08-30] MEDS ORDERED: ACETAMINOPHEN 500 MG TABLET PO STA (11:15)
[2019-08-30 11:23] LABS: Basophils # 0.1 10*3/uL (0.0-0.2); Basophils % 0.3 % (0.0-0.8); Hematocrit 35.5 VOL% (35.7-47.0); Hemoglobin 10.9 GM/DL (12.0-16.0); Immature Granulocytes % 0.9 %; Immature Granulocytes Absolute 0.19 #; Lymphocytes # 1.9 10*3/uL (1.4-4.0); Lymphocytes % 9.3 % (21.3-54.2); Mean Corpuscular HGB Conc 30.7 GM/DL (32-36); Mean Corpuscular Volume 73.7 FL (87-102); Mean Platelet Volume 11.4 FL (9.6-12.0); Monocytes % 9.7 % (1.7-12.7); Neutrophils % 79.8 % (38.7-73.9); Platelet Count 347 T/CUMM (130-400); Red Blood Count 4.82 MC/CUMM (3.8-5.5); Red Cell Distribution Width 13.7 % (9.3-17.3); White Blood Count 20.8 T/CUMM (4-12)
[2019-08-30 11:29] LABS: Apearance,Urine CLEAR (Clear); Bacteria,Urine Occasional /HPF (Few); Bilirubin,Urine Negative (Negative); Blood, Urine Large mg/dL (Negative); Glucose,Urine (UA) Negative (Negative); Ketones,Urine Negative (Negative); Nitrite,Urine Negative (Negative); Protein,Urine 100 MG/DL; RBC,Urine 17 /HPF (0-4); Squamous Epithelial Cell,Urine Occasional /HPF (0-10); Urine Color Yellow (Yellow); Urine Specific Gravity 1.006 (1.001-1.035); WBC,Urine 8 /HPF (0-6)
[2019-08-30 11:47] LABS: Albumin 2.9 G/DL (3.4-5.0); Band Neutrophils 1 % (0-10); Calcium 8.9 MG/DL (8.5-10.1); Hypochromasia 1+; Lymphocytes 6 % (20-55); Osmolality,Calculated 259.7 MOS/KG (273-304); Ovalocytes Slight; Platelet Estimate Adequate; Segmented Neutrophils 80 % (50-85); Total Cells Counted 100; Total Protein 8.2 G/DL (6.4-8.3)
[2019-08-30] MEDS ORDERED: SODIUM CHLORIDE 0.9% IV ONE (12:10)
[2019-08-30] MEDS ORDERED: POTASSIUM CHLORIDE RIDER 10 MEQ in PREMIX 1 EACH IV PRN (12:22)
[2019-08-30] MEDS ORDERED: BISACODYL 5 MG TABLET PO PRN (12:23)
[2019-08-30] MEDS ORDERED: SIMETHICONE CHEW 125 MG TABLET PO PRN (12:23)
[2019-08-30] MEDS ORDERED: GLUCAGON 1 MG VIAL IM PRN (12:23)
[2019-08-30] MEDS ORDERED: diphenhydrAMINE CAP 25 MG CAPSULE PO PRN (12:23)
[2019-08-30] MEDS ORDERED: traZODone 50 MG TABLET PO PRN (12:23)
[2019-08-30] MEDS ORDERED: DEXTROSE 50% 25 GM/50 ML VIAL IV PRN (12:23)
[2019-08-30] MEDS ORDERED: ONDANSETRON 4 MG/2 ML VIAL IV PRN (12:23)
[2019-08-30] MEDS ORDERED: ZALEPLON 5 MG CAPSULE PO PRN (12:23)
[2019-08-30] MEDS ORDERED: LACTULOSE 20 GM/30 ML UDCUP PO PRN (12:23)
[2019-08-30] MEDS ORDERED: ALUMINUM/MAGNES/SIMETH MAX STR 30 ML UDCUP PO PRN (12:23)
[2019-08-30] MEDS ORDERED: MORPHINE 4 MG/1 ML VIAL IV PRN (12:23)
[2019-08-30] MEDS ORDERED: DOCUSATE SODIUM 100 MG CAPSULE PO PRN (12:23)
[2019-08-30 12:45] LABS: Risk Ratio 5.81
[2019-08-30 13:34] LABS: HIV Antigen/Antibody Result Nonreactive (Nonreactive)
[2019-08-30] MEDS ORDERED: INFLUENZA VIRUS VACCINE 0.5 ML SYRINGE IM ONE (15:16)
[2019-08-30] MEDS: POTASSIUM CHLORIDE 20 MEQ TABLET PO SCH ×2 (16:29→20:22)
[2019-08-30] MEDS: LEVOFLOXACIN INJ 500 MG in PREMIX 1 EACH IV SCH (16:30)
[2019-08-30] MEDS: SODIUM CHLORIDE 0.9% 1,000 ML IV SCH (18:55)
[2019-08-30] MEDS: ACETAMINOPHEN 325 MG TABLET PO PRN (20:57)
[2019-08-31] MEDS: POTASSIUM CHLORIDE 20 MEQ TABLET PO SCH (00:19)
[2019-08-31] MEDS ORDERED: POTASSIUM CHLORIDE 20 MEQ TABLET PO SCH (00:30)
[2019-08-31] MEDS: SODIUM CHLORIDE 0.9% 1,000 ML IV SCH ×3 (02:42→17:38)
[2019-08-31 05:53] LABS: Basophils % 0.2 % (0.0-0.8); Eosinophils % 0.1 % (0.00-10.9); Hematocrit 32.2 VOL% (35.7-47.0); Hemoglobin 9.4 GM/DL (12.0-16.0); Immature Granulocytes % 0.7 %; Immature Granulocytes Absolute 0.09 #; Lymphocytes # 2.3 10*3/uL (1.4-4.0); Lymphocytes % 16.9 % (21.3-54.2); Mean Corpuscular HGB Conc 29.2 GM/DL (32-36); Mean Corpuscular Volume 75.9 FL (87-102); Mean Platelet Volume 11.5 FL (9.6-12.0); Monocytes % 10.1 % (1.7-12.7); Platelet Count 325 T/CUMM (130-400); Red Blood Count 4.24 MC/CUMM (3.8-5.5); Red Cell Distribution Width 13.8 % (9.3-17.3); White Blood Count 13.6 T/CUMM (4-12)
[2019-08-31 06:15] LABS: Band Neutrophils 2 % (0-10); Lymphocytes 12 % (20-55); Segmented Neutrophils 76 % (50-85); Total Cells Counted 100
[2019-08-31 06:16] LABS: Anisocytosis 1+; Ovalocytes 1+; Platelet Estimate Normal; Tear Drop Cells 1+
[2019-08-31 06:39] LABS: Albumin 2.4 G/DL (3.4-5.0); Bilirubin,Total 0.8 MG/DL (0.2-1.0); Calcium 8.4 MG/DL (8.5-10.1); Osmolality,Calculated 272.7 MOS/KG (273-304); Thyroid Stimulating Hormone 1.44 uIU/ml (0.358-3.74)
[2019-08-31] MEDS: PANTOPRAZOLE 40 MG TABLET PO SCH (09:23)
[2019-08-31] MEDS: ACETAMINOPHEN 325 MG TABLET PO PRN ×2 (10:48→21:55)
[2019-08-31] MEDS ORDERED: cefTRIAXone 1,000 MG in SYRINGE 1 EACH IV SCH (12:00)
[2019-08-31] MEDS: LEVOFLOXACIN INJ 500 MG in PREMIX 1 EACH IV SCH (16:38)
[2019-09-01] MEDS: SODIUM CHLORIDE 0.9% 1,000 ML IV SCH ×5 (03:50→20:51)
[2019-09-01 05:37] LABS: Basophils % 0.4 % (0.0-0.8); Eosinophils % 0.3 % (0.00-10.9); Hematocrit 30.5 VOL% (35.7-47.0); Hemoglobin 9.1 GM/DL (12.0-16.0); Immature Granulocytes % 0.6 %; Immature Granulocytes Absolute 0.06 #; Lymphocytes # 2.6 10*3/uL (1.4-4.0); Lymphocytes % 24.8 % (21.3-54.2); Mean Corpuscular HGB Conc 29.8 GM/DL (32-36); Mean Corpuscular Volume 75.5 FL (87-102); Monocytes % 8.8 % (1.7-12.7); Neutrophils % 65.1 % (38.7-73.9); Platelet Count 310 T/CUMM (130-400); Red Blood Count 4.04 MC/CUMM (3.8-5.5); Red Cell Distribution Width 14.2 % (9.3-17.3); White Blood Count 10.4 T/CUMM (4-12)
[2019-09-01 06:13] LABS: Albumin 2.4 G/DL (3.4-5.0); Bilirubin,Total 0.7 MG/DL (0.2-1.0); Calcium 8.1 MG/DL (8.5-10.1); Osmolality,Calculated 272.5 MOS/KG (273-304); Total Protein 6.5 G/DL (6.4-8.3)
[2019-09-01] MEDS: PANTOPRAZOLE 40 MG TABLET PO SCH (08:43)
[2019-09-01 10:27] LABS: Ferritin 95.6 ng/ml (8-252)
[2019-09-01] MEDS: LEVOFLOXACIN INJ 500 MG in PREMIX 1 EACH IV SCH (16:13)
[2019-09-02] MEDS: SODIUM CHLORIDE 0.9% 1,000 ML IV SCH ×3 (00:03→11:11)
[2019-09-02 05:33] LABS: Basophils % 0.4 % (0.0-0.8); Eosinophils # 0.1 10*3/uL (0.0-0.87); Eosinophils % 1.2 % (0.00-10.9); Hematocrit 28.4 VOL% (35.7-47.0); Hemoglobin 8.6 GM/DL (12.0-16.0); Immature Granulocytes % 0.7 %; Immature Granulocytes Absolute 0.06 #; Lymphocytes # 2.5 10*3/uL (1.4-4.0); Lymphocytes % 29.9 % (21.3-54.2); Mean Corpuscular HGB Conc 30.3 GM/DL (32-36); Mean Corpuscular Volume 73.8 FL (87-102); Mean Platelet Volume 11.8 FL (9.6-12.0); Monocytes % 8.8 % (1.7-12.7); Platelet Count 338 T/CUMM (130-400); Red Blood Count 3.85 MC/CUMM (3.8-5.5); Red Cell Distribution Width 14.4 % (9.3-17.3); White Blood Count 8.5 T/CUMM (4-12)
[2019-09-02 06:08] LABS: Albumin 2.3 G/DL (3.4-5.0); Bilirubin,Total 0.4 MG/DL (0.2-1.0); Calcium 8.4 MG/DL (8.5-10.1); Osmolality,Calculated 272.5 MOS/KG (273-304); Total Protein 7.1 G/DL (6.4-8.3)
[2019-09-02 07:55] VITALS: BP 132/88
[2019-09-02] MEDS: PANTOPRAZOLE 40 MG TABLET PO SCH (08:45)
== END 2019-09-02 10:05 | disposition home or self-care (01) | DRG 872 ==
LOC: N.ED 10:25 → SUATTDRO 12:32 → N.EDINP 12:32 → N.3E 14:26
PROVIDERS: ADMIT Internal Medicine Cardiovascular Disease; ATTEND Internal Medicine

== ENCOUNTER 2021-10-22 21:01 | Inpatient (IN) ==
[2021-10-22 21:32] LABS: Basophils % 0.2 % (0.0-0.8); Hematocrit 31.7 VOL% (35.7-47.0); Hemoglobin 10.1 GM/DL (12.0-16.0); Immature Granulocytes % 0.9 %; Immature Granulocytes Absolute 0.16 #; Lymphocytes # 1.4 10*3/uL (1.4-4.0); Lymphocytes % 7.9 % (21.3-54.2); Mean Corpuscular HGB Conc 31.9 GM/DL (32-36); Mean Corpuscular Volume 69.5 FL (87-102); Mean Platelet Volume 10.9 FL (9.6-12.0); Monocytes # 1.4 10*3/uL (0.11-0.8); Monocytes % 7.7 % (1.7-12.7); Neutrophils % 83.3 % (38.7-73.9); Platelet Count 372 T/CUMM (130-400); Red Blood Count 4.56 MC/CUMM (3.8-5.5); Red Cell Distribution Width 14.2 % (9.3-17.3); White Blood Count 18.2 T/CUMM (4-12)
[2021-10-22 21:36] LABS: Bilirubin,Urine Negative (Negative); Blood, Urine Small mg/dL (Negative); Glucose,Urine (UA) Negative (Negative); Ketones,Urine Negative (Negative); Nitrite,Urine Negative (Negative); Protein,Urine 30 mg/dL (Negative); Urine Appearance Clear (Clear); Urine Color Yellow (Yellow); Urine pH 6.5 (4.5-8.0)
[2021-10-22 21:38] LABS: Bacteria,Urine Occasional /HPF (Few); RBC,Urine 2 /HPF (0-4); Squamous Epithelial Cell,Urine Occasional /HPF (0-10)
[2021-10-22 21:53] LABS: Eosinophils 1 % (0-10); Lymphocytes 9 % (20-55); Total Cells Counted 100
[2021-10-22 21:57] LABS: Platelet Estimate Normal
[2021-10-22 22:13] LABS: Albumin 2.6 G/DL (3.4-5.0); Bilirubin,Total 2.1 MG/DL (0.20-1.00); Osmolality,Calculated 275.5 MOS/KG (273-304); Potassium 3.1 MMOL/L (3.5-5.1); Total Protein 6.8 G/DL (6.4-8.2)
[2021-10-22] MEDS ORDERED: POTASSIUM CHLORIDE 20 MEQ TABLET PO STA (22:21)
[2021-10-22] MEDS ORDERED: SODIUM CHLORIDE 0.9% 1,000 ML IV STA (22:40)
[2021-10-22] MEDS ORDERED: ONDANSETRON 4 MG/2 ML VIAL IV STA (22:40)
[2021-10-22] MEDS ORDERED: HYDROmorphone 1 MG/1 ML SYRINGE IV ONE (22:40)
[2021-10-23] MEDS ORDERED: PIPERACILLIN/TAZOBACTAM 3,375 MG in SODIUM CHLORIDE 0.9% 100 ML IV STA (00:16)
[2021-10-23] MEDS ORDERED: ONDANSETRON 4 MG/2 ML VIAL IV PRN (00:23)
[2021-10-23] MEDS ORDERED: NICOTINE 21 MG/24 HR PATCH TRANSDERM PRN (00:23)
[2021-10-23] MEDS ORDERED: guaiFENesin/DM ER 600-30 MG TABLET PO PRN (00:23)
[2021-10-23] MEDS ORDERED: hydrALAZINE 20 MG/1 ML VIAL IV PRN (00:23)
[2021-10-23] MEDS ORDERED: DEXTROSE 10% 250 ML BAG IV PRN (00:23)
[2021-10-23] MEDS ORDERED: diphenhydrAMINE CAP 25 MG CAPSULE PO PRN (00:23)
[2021-10-23] MEDS ORDERED: ACETAMINOPHEN 325 MG TABLET PO PRN (00:23)
[2021-10-23] MEDS ORDERED: GLUCAGON 1 MG VIAL IM PRN (00:23)
[2021-10-23] MEDS: SODIUM CHLORIDE 0.9% 1,000 ML IV SCH ×4 (00:45→23:11)
[2021-10-23 04:52] LABS: Basophils % 0.3 % (0.0-0.8); Eosinophils % 0.2 % (0.00-10.9); Hematocrit 28.9 VOL% (35.7-47.0); Immature Granulocytes % 1.2 %; Immature Granulocytes Absolute 0.18 #; Lymphocytes # 1.9 10*3/uL (1.4-4.0); Lymphocytes % 13.1 % (21.3-54.2); Mean Corpuscular HGB Conc 31.1 GM/DL (32-36); Mean Corpuscular Volume 71.2 FL (87-102); Mean Platelet Volume 10.9 FL (9.6-12.0); Monocytes # 1.6 10*3/uL (0.11-0.8); Monocytes % 10.9 % (1.7-12.7); Neutrophils % 74.3 % (38.7-73.9); Platelet Count 330 T/CUMM (130-400); Red Blood Count 4.06 MC/CUMM (3.8-5.5); White Blood Count 14.5 T/CUMM (4-12)
[2021-10-23 05:11] LABS: Calcium 8.4 MG/DL (8.5-10.1); Eosinophils 1 % (0-10); Lymphocytes 10 % (20-55); Osmolality,Calculated 276.4 MOS/KG (273-304); Platelet Estimate Adequate; Potassium 3.4 MMOL/L (3.5-5.1); Total Cells Counted 100
[2021-10-23 05:22] LABS: Albumin 2.1 G/DL (3.4-5.0); Bilirubin,Direct 1.28 MG/DL (0.0-0.20); Bilirubin,Indirect 0.3 MG/DL (0.0-1.0); Bilirubin,Total 1.6 MG/DL (0.20-1.00); Total Protein 6.3 G/DL (6.4-8.2)
[2021-10-23 05:53] LABS: Hepatitis B Core IgM Quant < 0.05 Index; Hepatitis B Surface Ag Quant 0.87 Index; Hepatitis B Surface Ag Result Non-Reactive (NonReactive); Hepatitis C Virus Ab Quant 0.04 Index; Hepatitis C Virus Ab Result Non-Reactive (NonReactive)
[2021-10-23] MEDS: cefTRIAXone 1,000 MG in SODIUM CHLORIDE 0.9% 100 ML IV SCH (07:58)
[2021-10-23] MEDS: BISACODYL 5 MG TABLET PO SCH (08:56)
[2021-10-23] MEDS: PANTOPRAZOLE 40 MG TABLET PO SCH (08:56)
[2021-10-23] MEDS: MORPHINE 2 MG/1 ML SYRINGE IV PRN (22:13)
[2021-10-23] MEDS: ZALEPLON 5 MG CAPSULE PO PRN (23:11)
[2021-10-24] MEDS: SODIUM CHLORIDE 0.9% 1,000 ML IV SCH ×3 (06:26→18:12)
[2021-10-24] MEDS: BISACODYL 5 MG TABLET PO SCH (08:49)
[2021-10-24] MEDS: cefTRIAXone 1,000 MG in SODIUM CHLORIDE 0.9% 100 ML IV SCH (08:49)
[2021-10-24] MEDS: PANTOPRAZOLE 40 MG TABLET PO SCH (08:49)
[2021-10-24 09:50] LABS: Basophils % 0.3 % (0.0-0.8); Eosinophils # 0.1 10*3/uL (0.0-0.87); Eosinophils % 0.9 % (0.00-10.9); Hematocrit 27.3 VOL% (35.7-47.0); Hemoglobin 8.7 GM/DL (12.0-16.0); Immature Granulocytes % 0.8 %; Immature Granulocytes Absolute 0.09 #; Lymphocytes # 1.8 10*3/uL (1.4-4.0); Mean Corpuscular HGB Conc 31.9 GM/DL (32-36); Mean Corpuscular Volume 69.5 FL (87-102); Mean Platelet Volume 10.3 FL (9.6-12.0); Monocytes # 1.4 10*3/uL (0.11-0.8); Monocytes % 12.5 % (1.7-12.7); Neutrophils % 69.5 % (38.7-73.9); Platelet Count 321 T/CUMM (130-400); Red Blood Count 3.93 MC/CUMM (3.8-5.5); Red Cell Distribution Width 14.4 % (9.3-17.3); White Blood Count 11.5 T/CUMM (4-12)
[2021-10-24 10:02] LABS: Calcium 7.9 MG/DL (8.5-10.1); Potassium 3.3 MMOL/L (3.5-5.1)
[2021-10-24 10:14] LABS: Band Neutrophils 1 % (0-10); Eosinophils 2 % (0-10); Hypochromia 1+; Lymphocytes 15 % (20-55); Microcytosis 1+; Ovalocytes Slight; Total Cells Counted 100
[2021-10-24] MEDS: MORPHINE 2 MG/1 ML SYRINGE IV PRN (18:03)
[2021-10-24] MEDS ORDERED: KETOROLAC 15 MG/1 ML VIAL IV PRN (18:05)
[2021-10-24] MEDS ORDERED: KETOROLAC 15 MG/1 ML VIAL IV SCH (18:30)
[2021-10-25] MEDS: SODIUM CHLORIDE 0.9% 1,000 ML IV SCH ×2 (00:10→08:22)
[2021-10-25 04:52] LABS: Basophils # 0.1 10*3/uL (0.0-0.2); Basophils % 0.5 % (0.0-0.8); Eosinophils # 0.1 10*3/uL (0.0-0.87); Eosinophils % 0.9 % (0.00-10.9); Hematocrit 25.2 VOL% (35.7-47.0); Hemoglobin 7.9 GM/DL (12.0-16.0); Immature Granulocytes % 1.2 %; Immature Granulocytes Absolute 0.12 #; Lymphocytes # 2.3 10*3/uL (1.4-4.0); Lymphocytes % 23.5 % (21.3-54.2); Mean Corpuscular HGB Conc 31.3 GM/DL (32-36); Mean Corpuscular Volume 68.9 FL (87-102); Mean Platelet Volume 10.4 FL (9.6-12.0); Monocytes # 1.1 10*3/uL (0.11-0.8); Monocytes % 11.4 % (1.7-12.7); Neutrophils % 62.5 % (38.7-73.9); Platelet Count 350 T/CUMM (130-400); Red Blood Count 3.66 MC/CUMM (3.8-5.5); Red Cell Distribution Width 13.8 % (9.3-17.3); White Blood Count 9.9 T/CUMM (4-12)
[2021-10-25 05:20] LABS: Albumin 1.8 G/DL (3.4-5.0); Bilirubin,Total 1.1 MG/DL (0.20-1.00); Calcium 8.1 MG/DL (8.5-10.1); Osmolality,Calculated 278.1 MOS/KG (273-304); Potassium 2.9 MMOL/L (3.5-5.1); Total Protein 5.9 G/DL (6.4-8.2)
[2021-10-25 05:23] LABS: Anisocytosis Slight; Burr Cells Few; Platelet Estimate Normal; Target Cells Few
[2021-10-25] MEDS: cefTRIAXone 1,000 MG in SODIUM CHLORIDE 0.9% 100 ML IV SCH (08:22)
[2021-10-25] MEDS ORDERED: POTASSIUM CHLORIDE 20 MEQ TABLET PO PRN (09:04)
[2021-10-25] MEDS: BISACODYL 5 MG TABLET PO SCH (13:01)
[2021-10-25] MEDS: PANTOPRAZOLE 40 MG TABLET PO SCH (13:01)
[2021-10-26] MEDS: ZALEPLON 5 MG CAPSULE PO PRN (00:53)
[2021-10-26] MEDS: SODIUM CHLORIDE 0.9% 1,000 ML IV SCH (02:45)
[2021-10-26 07:19] LABS: Basophils % 0.3 % (0.0-0.8); Eosinophils # 0.1 10*3/uL (0.0-0.87); Eosinophils % 1.1 % (0.00-10.9); Hematocrit 25.5 VOL% (35.7-47.0); Immature Granulocytes % 1.7 %; Immature Granulocytes Absolute 0.15 #; Lymphocytes # 2.4 10*3/uL (1.4-4.0); Lymphocytes % 27.1 % (21.3-54.2); Mean Corpuscular HGB Conc 31.4 GM/DL (32-36); Mean Corpuscular Volume 69.1 FL (87-102); Mean Platelet Volume 9.8 FL (9.6-12.0); Monocytes # 0.7 10*3/uL (0.11-0.8); Monocytes % 8.4 % (1.7-12.7); Neutrophils % 61.4 % (38.7-73.9); Platelet Count 370 T/CUMM (130-400); Red Blood Count 3.69 MC/CUMM (3.8-5.5); Red Cell Distribution Width 14.1 % (9.3-17.3); White Blood Count 8.9 T/CUMM (4-12)
[2021-10-26 07:39] LABS: Albumin 1.8 G/DL (3.4-5.0); Bilirubin,Total 0.6 MG/DL (0.20-1.00); Calcium 8.2 MG/DL (8.5-10.1); Osmolality,Calculated 282.8 MOS/KG (273-304); Potassium 2.9 MMOL/L (3.5-5.1)
[2021-10-26] MEDS: PANTOPRAZOLE 40 MG TABLET PO SCH (08:07)
[2021-10-26] MEDS: BISACODYL 5 MG TABLET PO SCH (08:08)
[2021-10-26] MEDS: cefTRIAXone 1,000 MG in SODIUM CHLORIDE 0.9% 100 ML IV SCH (08:08)
[2021-10-26] MEDS ORDERED: POTASSIUM CHLORIDE 20 MEQ TABLET PO SCH (09:00)
[2021-10-26] MEDS: CHOLECALCIFEROL 5,000 UNIT TABLET PO SCH (09:00)
[2021-10-26] MEDS: VANCOMYCIN INJ 1,250 MG in SODIUM CHLORIDE 0.9% 250 ML IV SCH ×2 (10:28→22:16)
[2021-10-26] MEDS: LEVOFLOXACIN INJ 750 MG/150 ML PREMIX IV SCH (14:37)
[2021-10-26] MEDS: MULTIVITAMIN (BEROCCA) TABLET PO SCH (14:37)
[2021-10-27 06:24] LABS: Basophils % 0.3 % (0.0-0.8); Eosinophils # 0.2 10*3/uL (0.0-0.87); Eosinophils % 2.1 % (0.00-10.9); Hematocrit 24.9 VOL% (35.7-47.0); Hemoglobin 7.8 GM/DL (12.0-16.0); Immature Granulocytes Absolute 0.15 #; Lymphocytes # 2.5 10*3/uL (1.4-4.0); Lymphocytes % 33.3 % (21.3-54.2); Mean Corpuscular HGB Conc 31.3 GM/DL (32-36); Mean Corpuscular Volume 69.7 FL (87-102); Mean Platelet Volume 11.4 FL (9.6-12.0); Monocytes # 0.6 10*3/uL (0.11-0.8); Monocytes % 7.9 % (1.7-12.7); Neutrophils % 54.4 % (38.7-73.9); Platelet Count 367 T/CUMM (130-400); Red Blood Count 3.57 MC/CUMM (3.8-5.5); Red Cell Distribution Width 14.2 % (9.3-17.3); White Blood Count 7.5 T/CUMM (4-12)
[2021-10-27 06:38] LABS: Calcium 8.4 MG/DL (8.5-10.1); Osmolality,Calculated 281.8 MOS/KG (273-304); Potassium 3.1 MMOL/L (3.5-5.1)
[2021-10-27] MEDS: MULTIVITAMIN (BEROCCA) TABLET PO SCH (09:27)
[2021-10-27] MEDS: CHOLECALCIFEROL 5,000 UNIT TABLET PO SCH (09:27)
[2021-10-27] MEDS: POTASSIUM CHLORIDE 20 MEQ TABLET PO SCH ×2 (09:27→20:35)
[2021-10-27] MEDS: BISACODYL 5 MG TABLET PO SCH (09:27)
[2021-10-27] MEDS: VANCOMYCIN INJ 1,250 MG in SODIUM CHLORIDE 0.9% 250 ML IV SCH ×2 (09:28→23:07)
[2021-10-27] MEDS: PANTOPRAZOLE 40 MG TABLET PO SCH (09:29)
[2021-10-27] MEDS: LEVOFLOXACIN INJ 750 MG/150 ML PREMIX IV SCH (13:53)
[2021-10-27] MEDS ORDERED: ENOXAPARIN 40 MG/0.4 ML SYRINGE SUBCUT SCH (21:00)
[2021-10-28 06:19] LABS: Basophils % 0.4 % (0.0-0.8); Eosinophils # 0.3 10*3/uL (0.0-0.87); Eosinophils % 2.9 % (0.00-10.9); Hematocrit 26.4 VOL% (35.7-47.0); Hemoglobin 8.2 GM/DL (12.0-16.0); Immature Granulocytes % 2.5 %; Immature Granulocytes Absolute 0.24 #; Lymphocytes # 2.9 10*3/uL (1.4-4.0); Lymphocytes % 30.9 % (21.3-54.2); Mean Corpuscular HGB Conc 31.1 GM/DL (32-36); Mean Corpuscular Volume 70.2 FL (87-102); Mean Platelet Volume 11.8 FL (9.6-12.0); Monocytes # 0.6 10*3/uL (0.11-0.8); Monocytes % 6.7 % (1.7-12.7); Neutrophils % 56.6 % (38.7-73.9); Platelet Count 386 T/CUMM (130-400); Red Blood Count 3.76 MC/CUMM (3.8-5.5); Red Cell Distribution Width 14.6 % (9.3-17.3); White Blood Count 9.4 T/CUMM (4-12)
[2021-10-28 06:36] LABS: Calcium 8.8 MG/DL (8.5-10.1); Potassium 3.5 MMOL/L (3.5-5.1)
[2021-10-28 06:46] LABS: Eosinophils 2 % (0-10); Lymphocytes 34 % (20-55); Nucleated Red Blood Cells 1 (0-5); Platelet Estimate Adequate; Total Cells Counted 100
[2021-10-28 06:47] LABS: Hypochromia 1+; Microcytosis 1+
[2021-10-28] MEDS ORDERED: VANCOMYCIN INJ 1,250 MG in SODIUM CHLORIDE 0.9% 250 ML IV SCH (08:00)
[2021-10-28] MEDS: POTASSIUM CHLORIDE 20 MEQ TABLET PO SCH (08:51)
[2021-10-28] MEDS: CHOLECALCIFEROL 5,000 UNIT TABLET PO SCH (08:51)
[2021-10-28] MEDS: MULTIVITAMIN (BEROCCA) TABLET PO SCH (08:51)
[2021-10-28] MEDS: PANTOPRAZOLE 40 MG TABLET PO SCH (08:51)
[2021-10-28] MEDS: BISACODYL 5 MG TABLET PO SCH (08:51)
[2021-10-28] MEDS ORDERED: amLODIPine 10 MG TABLET PO SCH (09:00)
[2021-10-28] MEDS ORDERED: LEVOFLOXACIN 500 MG TABLET PO SCH (11:00)
[2021-10-28 12:29] VITALS: BP 158/100
[2021-10-29] MEDS ORDERED: FERROUS SULFATE 325 MG TABLET PO SCH (09:00)
[2021-10-29] MEDS ORDERED: POTASSIUM CHLORIDE 20 MEQ TABLET PO SCH (09:00)
== END 2021-10-28 12:29 | disposition home or self-care (01) | DRG 463 ==
LOC: N.ED 21:01 → N.EDINP 10-23 00:23 → SUATTDRO 10-23 00:23 → N.5E 10-23 14:07
PROVIDERS: ADMIT Internal Medicine; ATTEND Hospitalist